=== PATIENT | male | born 1940 | race Caucasian/White ===

== ENCOUNTER → 2017-12-04 13:48 | Outpatient (CLI) | payer MEDICARE, SELFPAY ==
--- NOTE | 2017-12-04 13:52 | DI.MRI.S_ITS ---
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 COMPARISON: [facility], MR, CERVICAL SPINE W/O CONTRAST, 08/22/2012, 16:17. [facility], MR, CERVICAL SPINE W/O CONTRAST, 11/14/2004, 10:00. [facility], CT, C-SPINE W/O CONTRAST, 05/23/2013, 14:18. [facility], CR, SPINE CERVICAL 2 OR 3VW, 06/22/2014, 12:00. FINDINGS: Image quality: Excellent. Alignment and Curvature: There is normal bony alignment. Bone Marrow: Marrow demonstrates normal overall signal. There is interbody fusion at C6-T1. Posterior fusion is noted at C4-C6. Mild loss of vertebral body height of C5 without marrow edema, unchanged from the last exam, consistent with old compression fracture. Spinal Cord: There is abnormal cord signal at C5-C6, which is unchanged since 11/14/2004, consistent with history of cord injury and focal syringohydromyelia. No cerebellar tonsillar herniation. Paraspinous Soft Tissues: No paravertebral masses. Prevertebral soft tissues are normal in thickness. C2-C3: Preserved disc height. Mild disc desiccation. There is diffuse posterior disc bulge. Moderate bilateral facet arthropathy. The central canal is patent. Severe left and moderate right foraminal stenosis. There is no significant change from the last exam dated 08/22/2012. C3-C4: Metallic artifact from fusion hardware. Mild loss of disc height and disc desiccation. Mild bilateral facet arthropathy. The central canal is patent. No foraminal stenosis. There is no significant change from the last exam dated 08/22/2012. C4-C5: Metallic artifact from fusion hardware. Mild loss of disc height and disc desiccation. Mild bilateral facet arthropathy. The central canal is patent. No foraminal stenosis. There is no significant change from the last exam dated 08/22/2012. C5-C6: Metallic artifact from fusion hardware. [id number] loss of disc height and disc desiccation. Mild bilateral facet arthropathy. The central canal is patent. No foraminal stenosis. There is no significant change from 08/22/2012. C6-C7: Surgically fused. Mild central canal stenosis secondary to posterior osteophyte. Moderate to severe bilateral foraminal stenosis. No significant change from the last exam. C7-T1: Normal appearance. IMPRESSION: 1. 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 2. Multilevel degenerative and postsurgical as described. 3. No central canal stenosis. 4. Multilevel foraminal stenosis as described, not significantly changed from the last exam. 5. Mild old compression fracture of C5. Dictated by: Sherif Kenny M.D. on 12/04/2017 at 14:59 Transcribed by: JOEY on 12/04/2017 at 15:24 Approved by: Sherif Kenny M.D. on 12/05/2017 at 9:56
--- NOTE | 2017-12-04 14:42 | DI.RAD.S_ITS ---
PROCEDURE: XR CERVICAL SPINE 4V OR 5V INDICATIONS: cervical stenosis TECHNIQUE: 6 views of the cervical spine acquired. COMPARISON: [facility], MR, MR CERVICAL SPINE WO CON, 12/04/2017, 14:25. FINDINGS: Bones: No fractures or dislocations to the C5 level. There is posterior fusion at C4-C7. Severe degenerative disc disease is present C5-C6 and C6-C7. There is bilateral facet arthropathy scattered in cervical spine. Oblique images demonstrate no bony foraminal stenoses. Osteopenia. Soft tissues: No prevertebral soft tissue swelling. IMPRESSION: Degenerative and postsurgical changes in cervical spine. Dictated by: Sherif Kenny M.D. on 12/04/2017 at 17:08 Approved by: Sherif Kenny M.D. on 12/05/2017 at 9:32
== END ==
PROVIDERS: PCP Family Medicine; Visit Provider Physical Medicine & Rehabilitation
DX: M48.02 Spinal stenosis, cervical region (principal); M50.322 Other cervical disc degeneration at C5-C6 level; M85.88 Other specified disorders of bone density and structure, other site; M47.812 Spondylosis without myelopathy or radiculopathy, cervical region; G95.0 Syringomyelia and syringobulbia; G82.50 Quadriplegia, unspecified; Z98.1 Arthrodesis status
CPT/HCPCS: 72050; 72141

== ENCOUNTER → 2019-11-19 13:53 | Outpatient (CLI) | payer MEDICARE, SELFPAY ==
--- NOTE | 2019-11-19 13:55 | DI.RAD.S_ITS ---
PROCEDURE: XR CERVICAL SPINE 4V OR 5V INDICATIONS: cervical fx TECHNIQUE: 5 views of the cervical spine acquired. COMPARISON: [facility], CR, XR SHOULDER LT MIN 2V, 11/19/2019, 13:52. [facility], CR, XR CERVICAL SPINE 4V OR 5V, 12/04/2017, 14:25. Cervical spine MRI 12/04/2017, cervical spine plain films 12/04/2017, cervical spine CT 05/23/2013. FINDINGS: Bones: No fractures or dislocations to the C7 level. Oblique images demonstrate no bony foraminal stenoses. Postoperative changes are seen, with cerclage wires posteriorly and placement of prominent bone grafting material. There is straightening of the normal cervical lordosis. There is at least moderate disc space narrowing seen at C5-C6. Milder degenerative changes are seen elsewhere. On oblique images, there is mild disc space narrowing seen on the left at the L3-L4 level. The right oblique image is nondiagnostic. Soft tissues: No prevertebral soft tissue swelling. IMPRESSION: Postoperative and degenerative changes are seen, without an acute abnormality seen by plain film. If there is point tenderness (or other clinical suspicion for a fracture not seen on these images) then a dedicated CT could be considered for further evaluation, as clinically appropriate. Dictated by: Marvin Araujo M.D. on 11/19/2019 at 13:56 Approved by: Marvin Araujo M.D. on 11/19/2019 at 13:58
--- NOTE | 2019-11-19 13:55 | DI.RAD.S_ITS ---
PROCEDURE: XR SHOULDER LT MIN 2V INDICATIONS: left shoulder pain TECHNIQUE: 3 views of the shoulder were acquired. COMPARISON: [facility], CR, SHOULDER MIN 2VW (LT), 02/09/2014, 11:02. [facility], CR, XR CERVICAL SPINE 4V OR 5V, 11/19/2019, 13:52. FINDINGS: Bones: No fractures or dislocations. No suspicious bony lesions. Visualized ribs appear intact. There is advanced degenerative change seen of the left shoulder, with severe glenohumeral joint space narrowing, with prominent remodeling change of the glenohumeral joint. These degenerative changes are worsening over time. Milder degenerative changes are seen elsewhere. Soft tissues: No suspicious soft tissue calcifications. The visualized lung demonstrates an unremarkable appearance. IMPRESSION: Advanced, severe left shoulder glenohumeral joint degenerative change, which is worsening over time. Dictated by: Marvin Araujo M.D. on 11/19/2019 at 14:01 Approved by: Marvin Araujo M.D. on 11/19/2019 at 14:07
== END ==
PROVIDERS: PCP Family Medicine; Referring Provider Family Medicine; Visit Provider Physical Medicine & Rehabilitation
DX: S14.106A Unspecified injury at C6 level of cervical spinal cord, initial encounter (principal); M47.812 Spondylosis without myelopathy or radiculopathy, cervical region; M25.512 Pain in left shoulder; M19.019 Primary osteoarthritis, unspecified shoulder; M75.120 Complete rotator cuff tear or rupture of unspecified shoulder, not specified as traumatic; K59.2 Neurogenic bowel, not elsewhere classified; N31.9 Neuromuscular dysfunction of bladder, unspecified; Z91.89 Other specified personal risk factors, not elsewhere classified; X58.XXXA Exposure to other specified factors, initial encounter
CPT/HCPCS: 72050; 73030; 99214

== ENCOUNTER → 2020-03-09 09:11 | Outpatient (CLI) | payer MEDICARE, SELFPAY ==
[2020-03-09 10:19] LABS: Add Manual Diff / Slide Review NO; Basophils Absolute Auto 0 /uL (0-100); Basophils Percent Auto 0.7 % (0-2); Eosinophils Absolute Auto 100 /uL (0-450); Eosinophils Percent Auto 2.7 % (2-4); Hematocrit 40.7 % (41-53); Hemoglobin 13.8 g/dL (13.5-17.5); Lymphocytes Absolute Auto 700 /uL (1100-4500); Lymphocytes Percent Auto 15.3 % (25-40); Mean Corpuscular HGB Conc 33.9 % (30-36); Mean Corpuscular Hemoglobin 31.9 PG (26-34); Monocytes Absolute Auto 400 /uL (0-900); Neutrophils Absolute Auto 3500 /uL (1500-7000); Neutrophils Percent Auto 72.3 % (50-75); Platelet Count 189 X10^3/uL (150-400); Red Blood Cell Count 4.33 X10^6/uL (4.5-5.9); Red Cell Distribution Width 14.1 % (11.6-14.8); White Blood Cell Count 4.9 X10^3/uL (4.5-11.0)
[2020-03-09 10:37] LABS: Alanine Aminotransferase 12 IU/L (<50); Albumin 3.5 g/dL (3.5-5.0); Albumin Globulin Ratio 1.3 (1.0-2.8); Alkaline Phosphatase 67 U/L (38-126); Aspartate Aminotransferase 23 IU/L (17-59); BUN Creatinine Ratio 31.3 (6-22); Bilirubin Total 0.7 mg/dL (0.2-1.3); Blood Urea Nitrogen 26 mg/dL (9-20); Calcium 8.5 mg/dL (8.4-10.2); Carbon Dioxide 32 mmol/L (22-32); Chloride 101 mmol/L (98-107); Cholesterol 76 mg/dL (140-199); Estimated Glomerular Filt Rate > 60.0 mL/min (>60); Globulin 2.7 g/dL (1.7-4.1); Glucose 86 mg/dL (80-110); HDL Cholesterol 47 mg/dL (40-60); HEMOLYSIS < 15 (0-50); LDL Cholesterol Calculated 22 mg/dL (<100); Potassium 4.4 mmol/L (3.4-5.1); Sodium 136 mmol/L (137-145); Total Protein 6.2 g/dL (6.3-8.2); Triglycerides 33 mg/dL (35-150)
[2020-03-09 10:51] LABS: Vitamin D 25 Hydroxy (D3) 57.5 ng/mL (30.0-100.0)
[2020-03-09 11:04] LABS: Prostate Specific Antigen Scrn 1.02 ng/mL (0.1-4.0)
[2020-03-09 11:05] LABS: TSH w/ Reflex to FT4 1.51 uIU/mL (0.47-4.68)
[2020-03-09 11:22] LABS: Vitamin B12 347 pg/mL (239-931)
== END ==
PROVIDERS: PCP Family Medicine; Referring Provider Physical Medicine & Rehabilitation; Visit Provider Physical Medicine & Rehabilitation
DX: Z12.5 Encounter for screening for malignant neoplasm of prostate (principal); K59.2 Neurogenic bowel, not elsewhere classified; Z91.89 Other specified personal risk factors, not elsewhere classified; S14.106A Unspecified injury at C6 level of cervical spinal cord, initial encounter; N31.9 Neuromuscular dysfunction of bladder, unspecified; E78.2 Mixed hyperlipidemia; E03.9 Hypothyroidism, unspecified; E55.9 Vitamin D deficiency, unspecified
CPT/HCPCS: 36415; 80053; 80061; 82306; 82607; 84443; 85025; G0103

== ENCOUNTER → 2021-01-26 10:33 | Outpatient (CLI) | payer MEDICARE, SELFPAY ==
--- NOTE | 2021-01-26 10:35 | DI.US.S_ITS ---
PROCEDURE: US PERIPH VENOUS LOW EXTREM RT INDICATIONS: R/o DVT TECHNIQUE: Real-time imaging, as well as color and pulse Doppler interrogation, were performed of the lower extremity deep veins from the inguinal ligament to the popliteal fossa. COMPARISON: None. FINDINGS: The common femoral, femoral and popliteal veins are normally compressible, and free of intraluminal thrombus. Color and pulse Doppler demonstrate normal phasic intraluminal flow. There is normal augmentation response to distal compression maneuver. IMPRESSION: No evidence of deep venous thrombosis. Dictated by: Jordy Vera M.D. on 01/26/2021 at 15:08 Approved by: Jordy Vera M.D. on 01/26/2021 at 15:09
== END ==
PROVIDERS: PCP Family Medicine; Referring Provider Physical Medicine & Rehabilitation; Visit Provider Physical Medicine & Rehabilitation
DX: M79.604 Pain in right leg (principal); R60.9 Edema, unspecified; G82.50 Quadriplegia, unspecified
CPT/HCPCS: 93971

== ENCOUNTER → 2021-12-21 12:22 | Outpatient (CLI) | payer MEDICARE, SELFPAY ==
--- NOTE | 2021-12-21 12:24 | DI.RAD.S_ITS ---
PROCEDURE: XR SHOULDER LT MIN 2V INDICATIONS: Chronic cuff tear DJD TECHNIQUE: 3 views of the shoulder were acquired. COMPARISON: [facility], CR, XR SHOULDER LT MIN 2V, 11/19/2019, 13:52. FINDINGS: Severe end-stage degenerative changes of the shoulder with remodeling and flattening of the articular surfaces and extensive [id number] endplate contact along with subchondral cystic change and subchondral sclerosis. Chronic rotator cuff tear suspected given the high position of the humeral head. Bulky marginal osteophytosis. There may be a a loose body in the joint inferiorly. Complete degenerative fusion of the acromioclavicular joint. IMPRESSION: Severe end-stage left glenohumeral osteoarthritis. Progression since prior study. Dictated by: vEerett Rainey M.D. on 12/21/2021 at 15:48 Approved by: Everett Rainey M.D. on 12/21/2021 at 15:50
--- NOTE | 2021-12-21 12:24 | DI.RAD.S_ITS ---
PROCEDURE: XR CERVICAL SPINE 2V OR 3V INDICATIONS: C5-6 spinal cord injury TECHNIQUE: 3 view(s) of the cervical spine were acquired. COMPARISON: [facility], CR, XR CERVICAL SPINE 4V OR 5V, 11/19/2019, 13:52. FINDINGS/IMPRESSION: Lateral view is completely nondiagnostic. Odontoid view demonstrates no evidence of atlas fracture. Dens appears normally positioned. Consider CT for evaluate in this patient who is wheelchair bound and due to a reported lack of cervical spine range of motion cannot effectively position for radiographic evaluation Dictated by: Everett Rainey M.D. on 12/21/2021 at 15:50 Approved by: Everett Rainey M.D. on 12/21/2021 at 15:56
== END ==
PROVIDERS: PCP Family Medicine; Referring Provider Physical Medicine & Rehabilitation; Visit Provider Physical Medicine & Rehabilitation
DX: S14.115A Complete lesion at C5 level of cervical spinal cord, initial encounter (principal); S14.106S Unspecified injury at C6 level of cervical spinal cord, sequela; M75.120 Complete rotator cuff tear or rupture of unspecified shoulder, not specified as traumatic; M19.012 Primary osteoarthritis, left shoulder; M19.011 Primary osteoarthritis, right shoulder; Z91.89 Other specified personal risk factors, not elsewhere classified
CPT/HCPCS: 72040; 73030; 99214